=== PATIENT | female | born 1935 | race Caucasian/White ===

== ENCOUNTER 2018-09-21 23:31 | Observation (INO) ==
[2018-09-22 00:07] LABS: Basophils # (auto) 0.04 K/uL (0-0.2); Basophils % (auto) 0.6 %; Eosinophils # (auto) 0.26 K/uL (0-0.5); Eosinophils % (auto) 3.7 %; Hematocrit (blood only) 38.7 % (37-47); Hemoglobin 12.4 g/dL (12.0-16.0); Immature Granulocytes # (auto) 0.01 K/uL (0.00-0.02); Immature Granulocytes % (auto) 0.1 %; Lymphocytes # (auto) 2.43 K/uL (1.2-3.4); Lymphocytes % (auto) 34.2 %; Mean Corpuscular Volume 83.9 fL (80-100); Mean Platelet Volume 9.4 fL (7.4-10.4); Monocytes # (auto) 0.53 K/uL (0.11-0.59); Monocytes % (auto) 7.5 %; Neutrophils # (auto) 3.84 K/uL (1.4-6.5); Neutrophils % (auto) 53.9 %; Platelet Count 299 K/uL (130-400); RDW Coefficient of Variation 15.3 % (11.5-14.5); RDW Standard Deviation 46.6 fL (36.4-46.3); Red Blood Count 4.61 M/uL (4.2-5.4); White Blood Count 7.11 K/uL (4.8-10.8)
[2018-09-22] MEDS ORDERED: ASPIRIN CHEW 324 MG PO STA (00:22)
[2018-09-22 00:24] LABS: Albumin Level 3.6 gm/dl (3.4-5.0); Aspartate Aminotransferase 22 U/L (15-37); BUN Creatinine Ratio 40.8 (10-20); Blood Urea Nitrogen 24 mg/dl (7-18); Calcium 10.2 mg/dl (8.5-10.1); Carbon Dioxide 31 mmol/L (21-32); Chloride 101 mmol/L (98-107); Creatinine Clr Calc Pharmacy 68.8 ml/min; Est GFR (African American) 98.8; Est GFR (Non-African American) 85.2; Glucose 111 mg/dl (70-99); Potassium 4.1 mmol/L (3.5-5.1); Sodium 137 mmol/L (136-145)
[2018-09-22 00:25] LABS: Partial Thromboplastin Ratio 0.9; Partial Thromboplastin Time 25.3 Seconds (21.0-31.0); Prothrombin Time 10.5 Seconds (9.0-12.0)
[2018-09-22 00:29] LABS: Alanine Aminotransferase 15 U/L (12-78); Albumin Globulin Ratio 0.9 (0.9-2); Alkaline Phosphatase 132 U/L (45-117); Bilirubin,Total 0.6 mg/dl (0.2-1); Creatine Kinase 104 U/L (26-192); Creatine Kinase MB 7.1 ng/ml (0.5-3.6); Globulin 3.8 gm/dl (2.5-4.0); Total Protein 7.4 gm/dl (6.4-8.2); Troponin I < 0.015 ng/ml (0-0.045)
[2018-09-22] MEDS ORDERED: OPTIRAY 320 125ml IV PRN (00:57)
[2018-09-22] MEDS ORDERED: Heparin IV Low Dose *NO* Bolus ONE (04:42)
[2018-09-22] MEDS ORDERED: ACETAMINOPHEN 325 MG TAB PO PRN (04:42)
[2018-09-22] MEDS ORDERED: NITROGLYCERIN SL 0.4 MG/TAB TAB SL PRN (04:42)
[2018-09-22] MEDS ORDERED: MAGNESIUM HYDROXIDE SUSP 30 ML UDC PO PRN (04:42)
[2018-09-22] MEDS ORDERED: ONDANSETRON INJ 2 MG/ML 2 ML VIAL IV PRN (04:42)
--- NOTE | 2018-09-22 04:47 | History and Physical Report ---
DATE OF ADMISSION: 09/22/2018 CHIEF COMPLAINT: Chest pain. HISTORY OF PRESENT ILLNESS: This is an 83-year-old female with past medical history significant for hyperlipidemia; mild COPD; bronchiectasis without complication; GERD; Johnson's esophagitis; history of spinal cord ependymoma, status post surgery and radiation; neurogenic bladder, straight caths daily; osteoporosis, presents with chest pain. The patient actually yesterday night around 11:00pm, she had chest pain in the retrosternal region. This is a constant steady pain, 8/10 in severity, then she started to feel cold and she put a heating pad and she felt better .It was going to her back but she also has back problems from her surgeries. It lasted until 2am. She also has history of Johnson's esophagus so she was not sure whether this is coming from the heart or from the esophagus and she went to sleep. In the morning, she went to see her family doctor and in the PCP's office EKG was okay, but cardiac enzymes were checked and troponin T high sensitivity and CK-MB, both of them came back high and she was called in around 11:00pm in the night to come to the ER. Currently, the patient since the morning is chest pain free, hemodynamically stable. Denies any headache, no blurred vision. She is always dizzy and has ambulatory dysfunction and uses walker because of her back surgeries Lives with her . Daughter helps her. Denies any fever, chills. Yesterday, when she had chest pain, she had some cough and had some whitish phlegm, but this is improved now. Denies any nausea, no vomiting, no abdominal discomfort. She straight caths daily 4-5 times, no hematuria. She is constipated, but no black stools. Currently, resting comfortable and hemodynamically stable. Troponin T in the outpatient labs was 33 and CK-MB was 9.5. Here in the ER, troponin I is negative, less than 0.015 with CK-MB was high at 7.1. CTA of the chest also was done in the ER and it was unremarkable. We do not have official report yet. EKG is unremarkable. ALLERGIES: ADHESIVE TAPE DRESSING, GABAPENTIN, ASPIRIN, PENICILLINS. PAST MEDICAL HISTORY: As mentioned above. PAST SURGICAL HISTORY: Laminectomy, colonoscopy, EGDs, wedge resection of the lung done in 1990, tonsillectomy, adenoidectomy, spine surgeries in 2001 and 2008. MEDICATIONS: The patient currently on Vitamin D once a week, Benadryl 25 mg p.o. at bedtime p.r.n., naproxen 220 mg t.i.d. p.r.n., omeprazole 20 mg p.o. b.i.d.,hydroxyzine 25 mg p.o. at bedtime p.r.n.Imodium 2 mg p.o. b.i.d. p.r.n., Tylenol 500 mg p.o. daily p.r.n., Lysine 500 mg p.o. daily p.r.n., milk of magnesia as needed; MiraLax 17 g daily p.r.n. FAMILY HISTORY: Significant for mother had stroke, musculoskeletal disorder, mental disorder, heart disorder, cancer, and arthritis. SOCIAL HISTORY: , lives with . Former smoker, quit in 1964, smoked half a pack a day for 10 years. Alcohol 5-6 oz alcohol per week. No drug use. REVIEW OF SYMPTOMS: As per HPI. Rest of review of symptoms negative. PHYSICAL EXAMINATION: GENERAL: The patient is old and frail, not in acute distress. VITAL SIGNS: Temperature 36.5, pulse 70, respiratory rate 18, blood pressure 146/80, oxygen 97% room air. HEENT: No pallor, no icterus. Pupils equal, round, and react to light. NECK: No JVD, no neck masses, no carotid bruits. CARDIOVASCULAR: S1, S2 heard, regular rate and rhythm, no murmur, no gallop. RESPIRATORY SYSTEM: Normal AP diameter. No accessory muscle use. No wheezing, no crackles. ABDOMEN: Soft, bowel sounds present. Nontender. No distention. CENTRAL NERVOUS SYSTEM: Cranial nerves II-XII grossly intact. Nonfocal. EXTREMITIES: No edema, no erythema. LABS: WBC 7.1, hemoglobin 12.4, hematocrit 38.7, platelets 299. PT 10.5, INR 1, APTT 25.3. Sodium 137, potassium 4.1, chloride 101, bicarbonate 31, BUN 34, creatinine 0.5, serum glucose 111, calcium 10.2, total bilirubin 0.6, AST 22, ALT , alkaline phosphatase 132, total creatinine kinase 104, CK-MB 7.1, troponin I less than 0.015. Lipase 193. CT of the chest initially was unremarkable. EKG: Normal sinus rhythm, at rate of 75. No acute ST changes seen. ASSESSMENT AND PLAN: This is an 83-year-old female who presents with chest pain. 1. Chest pain, possible non-ST elevated myocardial infarction. Had chest pain yesterday night, lasted for probably 3hrs also had chest pain Tuesday, but not as severe as yesterday. Steady pain, 8/10 in severity, went to primary care physician. EKG was okay but troponin T was 33 and, CK-MB was 9.3 and advised to come to the Emergency Room. Here troponin I is negative but CK-MB is 7.1. The patient is currently asymptomatic and hemodynamically stable. We will observe in tele floor. Serial cardiac enzymes, echocardiogram. We will empirically start on low dose IV heparin and follow echocardiogram and await cardiac input. Closely monitor in the tele floor. 2. History of hyperlipidemia. Used to be on statin before but no longer. We will follow the fasting lipid profile and probably we will be starting statin. 3. History of Johnson's esophagus with dysplasia on omeprazole 20mg b.i.d. which will be continued. 4. History of spinal cord, ependymoma, first time in 2001, status post surgery and radiation, in 2008 again had surgery and radiation, but there was a small residual tumor from 2001 which is started o regrow. Now, she is following with [facility] and there is no plan for radiation or surgery .Plan to closely monitor with repeat MRI's Has back pain. Uses nsaids and tylenol prn. Will nsaid for now. 5. Deep vein thrombosis prophylaxis, sequential compression devices for now. DISPOSITION: Close monitor in tele floor. PT and OT prior to discharge. Social service to help with discharge planning. Level I full code. MTDD
[2018-09-22] MEDS ORDERED: HEPARIN LOW DOSE DEXTROSE 25,000 UNITS/500 ML IV SCH (04:48)
[2018-09-22 05:56] LABS: Basophils # (auto) 0.05 K/uL (0-0.2); Basophils % (auto) 0.9 %; Eosinophils # (auto) 0.24 K/uL (0-0.5); Eosinophils % (auto) 4.4 %; Hematocrit (blood only) 36.3 % (37-47); Hemoglobin 11.7 g/dL (12.0-16.0); Immature Granulocytes # (auto) 0.01 K/uL (0.00-0.02); Immature Granulocytes % (auto) 0.2 %; Lymphocytes # (auto) 2.04 K/uL (1.2-3.4); Lymphocytes % (auto) 37.5 %; Mean Corpuscular Hgb Conc 32.2 g/dL (32-36); Mean Corpuscular Volume 84.2 fL (80-100); Mean Platelet Volume 8.9 fL (7.4-10.4); Monocytes # (auto) 0.52 K/uL (0.11-0.59); Monocytes % (auto) 9.6 %; Neutrophils # (auto) 2.58 K/uL (1.4-6.5); Neutrophils % (auto) 47.4 %; Platelet Count 245 K/uL (130-400); RDW Standard Deviation 46.6 fL (36.4-46.3); Red Blood Count 4.31 M/uL (4.2-5.4); White Blood Count 5.44 K/uL (4.8-10.8)
[2018-09-22 06:13] LABS: BUN Creatinine Ratio 39.2 (10-20); Blood Urea Nitrogen 19 mg/dl (7-18); Calcium 9.4 mg/dl (8.5-10.1); Carbon Dioxide 29 mmol/L (21-32); Chloride 105 mmol/L (98-107); Creatinine Clr Calc Pharmacy 81.4 ml/min; Est GFR (African American) 104.4; Est GFR (Non-African American) 90.1; Glucose 92 mg/dl (70-99); Magnesium 2.4 mg/dl (1.8-2.4); Potassium 3.9 mmol/L (3.5-5.1); Sodium 140 mmol/L (136-145)
[2018-09-22 06:18] LABS: Chol HDL Ratio 3; Cholesterol 154 mg/dl (0-200); Creatine Kinase MB 4.4 ng/ml (0.5-3.6); HDL Cholesterol 46 mg/dl; LDL Cholesterol Calculated 88 mg/dl; Triglycerides 98 mg/dl (0-150); Troponin I < 0.015 ng/ml (0-0.045); VLDL Cholesterol 20 mg/dl
--- NOTE | 2018-09-22 06:24 | Emergency Department Note ---
Entered by Petr De La Paz acting as a scribe for History of Present Illness General Chief complaint: Chest Pain Stated complaint: CHEST PAIN Time Seen by Provider: 09/21/18 23:42 Source: patient History of Present Illness Provider complaint: Chest pain Onset (ago): day(s) 1 Location: chest Radiation: back Pain Consistency: + now resolved Current Pain Intensity: 8 Quality: + aching Relieved By: + none Associated symptoms: + cough, + fever/chills (No fever ) and + other (No abdominal pain, ); no nausea/vomiting and no shortness of breath The patient is an 83 year old female who presents to the Emergency Room after being told by her [facility] doctor, who she saw this morning, to come to the ED for elevated lab numbers including an elevated troponin. She originally went to [facility] for chest pain that started yesterday around 2300, but it has since resolved. She states when the pain was present, she rated it as an 8/10 and it was constant. She also had upper back pain, which is unusual for her because her lower back is usually what aches. The patient has also had a productive cough with white mucus and some chills that caused her to use a heating pad. She states she has had a dry cough for some time but no other illnesses and she also denies any shortness of breath, diaphoresis, or nausea. She also has not had any abdominal pain but did notice her left ankle has been slightly swollen. While at [facility] this morning she also had a chest xray done. She has no cardiac history besides being told twice in the past that she had an irregular heartbeat. The patient just recently stopped taking daily low dose Aspirin in August 2018. She also noted she has an endoscopy scheduled for October. Home Medications Home Medications Medication Instructions Recorded Confirmed Type acetaminophen [Tylenol] 650 mg PO DIRECTED PRN 09/22/18 09/22/18 History aspirin [Aspir-81] 81 mg PO Q OTHER DAY 09/22/18 09/22/18 History diphenhydramine HCl [Benadryl] 25 mg PO HS PRN 09/22/18 09/22/18 History hydroxyzine HCl 25 mg PO HS PRN 09/22/18 09/22/18 History ibuprofen 200 - 400 mg PO DIRECTED PRN 09/22/18 09/22/18 History lysine 500 mg PO DAILY 09/22/18 09/22/18 History magnesium hydroxide [Milk of 30 ml PO DAILY PRN 09/22/18 09/22/18 History Magnesia] omeprazole 20 mg PO BID 09/22/18 09/22/18 History psyllium husk [Metamucil] 1 tbsp PO DAILY 09/22/18 09/22/18 History Allergies Allergy/AdvReac Type Severity Reaction Status Date / Time adhesive Allergy Mild RASH, Verified 09/22/18 00:22 REDDENED AREAS WHERE APPLIED bacitracin Allergy Mild RASH Verified 09/22/18 00:22 neomycin Allergy Mild RASH Verified 09/22/18 00:22 Penicillins Allergy Mild RASH YEARS Verified 09/22/18 00:22 AGO polymyxin B Allergy Mild RASH Verified 09/22/18 00:22 Past Med/Surg History Medical History Irregular heart beat Family History Other Family history non-contributory Social History Current Living Situation: Spouse Other Information That Helps Us Care for You: No Feels Safe at Home: Yes Safety Concerns: Feels Safe At This Time Smoking Status: Former smoker Hx Alcohol Use: No Hx Substance Use: No Beliefs That Will Affect Care: None Review of Systems See HPI for pertinent positives & negatives. and A total of 10 systems reviewed and were otherwise negative Physical Exam Vital Signs Vital Signs - 24 hr 09/21/18 23:40 09/21/18 23:51 09/22/18 00:01 Temperature 36.5 C Temperature Source Oral Sepsis Recent Fever Within 48 Hours No Sepsis New/Unexplained Change in Mental Status No Sepsis Action Taken by Nursing No Action Required Pulse Rate 76 68 Pulse Rate [Apical] Pulse Rate from SpO2 Sensor 70 Respiratory Rate 19 15 Blood Pressure 160/88 H 134/75 Blood Pressure [Left Arm] Blood Pressure Mean 112 94 Blood Pressure Mean [Left Arm] Pulse Oximetry 96 98 95 Oxygen Delivery Method Room Air 09/22/18 00:30 09/22/18 01:00 09/22/18 01:30 Temperature Temperature Source Sepsis Recent Fever Within 48 Hours Sepsis New/Unexplained Change in Mental Status Sepsis Action Taken by Nursing Pulse Rate 70 73 70 Pulse Rate [Apical] Pulse Rate from SpO2 Sensor 70 73 70 Respiratory Rate 17 15 19 Blood Pressure 121/76 147/78 H 137/80 Blood Pressure [Left Arm] Blood Pressure Mean 91 101 99 Blood Pressure Mean [Left Arm] Pulse Oximetry 95 96 95 Oxygen Delivery Method 09/22/18 02:00 09/22/18 02:19 09/22/18 02:30 Temperature Temperature Source Sepsis Recent Fever Within 48 Hours Sepsis New/Unexplained Change in Mental Status Sepsis Action Taken by Nursing Pulse Rate 72 71 70 Pulse Rate [Apical] Pulse Rate from SpO2 Sensor 72 72 70 Respiratory Rate 21 16 18 Blood Pressure 148/84 H 141/88 H 146/88 H Blood Pressure [Left Arm] Blood Pressure Mean 105 105 107 Blood Pressure Mean [Left Arm] Pulse Oximetry 96 98 97 Oxygen Delivery Method 09/22/18 03:00 09/22/18 03:30 09/22/18 03:31 Temperature Temperature Source Sepsis Recent Fever Within 48 Hours Sepsis New/Unexplained Change in Mental Status Sepsis Action Taken by Nursing Pulse Rate 76 72 74 Pulse Rate [Apical] Pulse Rate from SpO2 Sensor Respiratory Rate 19 20 18 Blood Pressure 172/93 H 137/82 Blood Pressure [Left Arm] Blood Pressure Mean 119 100 Blood Pressure Mean [Left Arm] Pulse Oximetry Oxygen Delivery Method 09/22/18 03:50 Temperature 36.4 C L Temperature Source Oral Sepsis Recent Fever Within 48 Hours Sepsis New/Unexplained Change in Mental Status Sepsis Action Taken by Nursing Pulse Rate Pulse Rate [Apical] 101 H Pulse Rate from SpO2 Sensor Respiratory Rate 18 Blood Pressure Blood Pressure [Left Arm] 157/89 H Blood Pressure Mean Blood Pressure Mean [Left Arm] 111 Pulse Oximetry 97 Oxygen Delivery Method Room Air HEENT: Head - normocephalic and atraumatic Pupils are equal, round, and reactive to light. Extraocular eye muscles are intact, and sclera are anicteric. Nose - moist nasal mucosa without discharge. Mouth - moist buccal mucosa. Oropharynx is nonerythematous and there is no tonsillar exudate or edema noted. Neck: Supple; no JVD, nuchal rigidity, cervical lymphadenopathy. Heart: Regular rate and rhythm. There is a normal S1 and S2 with no murmurs, clicks, or gallops appreciated. Lungs: Clear to auscultation bilaterally with no wheezes, rales, or rhonchi. Abdomen: Soft, completely nontender, nondistended, with good bowel sounds. There are no palpable pulsatile masses or hepatosplenomegaly. There is no guarding, rigidity, or rebound noted. Extremities: No evidence of cyanosis, clubbing, or edema. There are easily palpable peripheral pulses. Skin: warm and dry with good turgor and no rashes. Course 0010: Past medical records reviewed. The patient was evaluated in room C04, and a complete history and physical examination were performed. 0016: I reviewed the labs from the patient's trip to [facility] this morning. Her high sensitivity Troponin T was 33, and it normally should range from 0-14. Her MB fraction was 9.5. Her ionized calcium was 1.45. I also reviewed her chest xray image through [facility] which showed she has a significantly widened mediastinum and a tortuous aorta. We have no previous chest Xrays here for comparison so she will be getting a CT scan of the chest. 0022: I ordered Aspirin 324mg PO 0035: I spoke to the patient about her chest xray that she had done today and the plan of treatment. She will go for CT scan of the chest 0205: I discussed the results of the imaging and labs with the patient. 0215: I spoke to Dr. Jerzy Nick about the patient's case and he is accepting her for further evaluation. Consultations Consultation #1: I spoke to Dr. Jerzy Nick about the patient 's case and he is accepting her for further evaluation. Time: 02:15 Administered Medications Heparin Sodium/Dextrose (Heparin Sodium/Dextrose) 25,000 units in 500 mls @ 14 mls/hr IV .Q24H [facility]; Protocol Stop: 10/22/18 04:47 Last Admin: 09/22/18 04:52 Dose: 700 units/hr, 14 mls/hr Discontinued Medications Aspirin (Aspirin) 324 mg PO NOW STA Stop: 09/22/18 00:23 Last Admin: 09/22/18 01:01 Dose: 324 mg Ioversol (Optiray 320 125ml) 119 ml IV ONCE PRN PRN Reason: Interaction Checking Stop: 09/26/18 00:56 Last Admin: 09/22/18 00:57 Dose: 119 ml Medical Decision Making Differential Diagnosis The patient is an 83 year old female who presents to the Emergency Room after being told by her [facility] doctor, who she saw this morning, to come to the ED for elevated lab numbers including an elevated troponin. Differential diagnosis includes N-STEMI, unstable angina, and GERD, amongst others. Medical Records Attestation: I reviewed the patient's medical records. Home Medications Current Medication List: was personally reviewed by me Laboratory Data Attestation: I reviewed the patient's lab results. Result diagrams: 09/22/18 05:43 09/22/18 05:43 Lab Results 09/21/18 09/21/18 09/21/18 Range/Units 23:45 23:45 23:45 WBC 7.11 (4.8-10.8) K/uL RBC 4.61 (4.2-5.4) M/uL Hgb 12.4 (12.0-16.0) g/dL Hct 38.7 (37-47) % MCV 83.9 (80-100) fL MCH 26.9 (25-34) pg MCHC 32.0 (32-36) g/dL RDW Std Deviation 46.6 H (36.4-46.3) fL RDW Coeff of Anastasia 15.3 H (11.5-14.5) % Plt Count 299 (130-400) K/uL MPV 9.4 (7.4-10.4) fL Immature Gran % (Auto) 0.1 % Neut % (Auto) 53.9 % Lymph % (Auto) 34.2 % [place] % (Auto) 7.5 % Eos % (Auto) 3.7 % Baso % (Auto) 0.6 % Immature Gran # (Auto) 0.01 (0.00-0.02) K/uL Neut # (Auto) 3.84 (1.4-6.5) K/uL Lymph # (Auto) 2.43 (1.2-3.4) K/uL [place] # (Auto) 0.53 (0.11-0.59) K/uL Eos # (Auto) 0.26 (0-0.5) K/uL Baso # (Auto) 0.04 (0-0.2) K/uL PT 10.5 (9.0-12.0) Seconds INR 1.0 (0.9-1.1) APTT 25.3 (21.0-31.0) Seconds PTT Ratio 0.9 Sodium 137 (136-145) mmol/L Potassium 4.1 (3.5-5.1) mmol/L Chloride 101 (98-107) mmol/L Carbon Dioxide 31 (21-32) mmol/L Anion Gap 5.0 (3-11) BUN 24 H (7-18) mg/dl Creatinine 0.58 L (0.6-1.2) mg/dl Est Cr Clr Drug Dosing 68.8 ml/min Est GFR ( Amer) 98.8 Est GFR (Non-Af Amer) 85.2 BUN/Creatinine Ratio 40.8 H (10-20) Glucose 111 H (70-99) mg/dl Calcium 10.2 H (8.5-10.1) mg/dl Magnesium (1.8-2.4) mg/dl Total Bilirubin 0.6 (0.2-1) mg/dl AST 22 (15-37) U/L ALT 15 (12-78) U/L Alkaline Phosphatase 132 H (45-117) U/L Total Creatine Kinase 104 (26-192) U/L CK-MB (CK-2) 7.1 H (0.5-3.6) ng/ml CK/CKMB % Calc 6.8 H (0-3.0) Troponin I < 0.015 (0-0.045) ng/ml Total Protein 7.4 (6.4-8.2) gm/dl Albumin 3.6 (3.4-5.0) gm/dl Globulin 3.8 (2.5-4.0) gm/dl Albumin/Globulin Ratio 0.9 (0.9-2) Triglycerides (0-150) mg/dl Cholesterol (0-200) mg/dl LDL Cholesterol, Calc mg/dl VLDL Cholesterol, Calc mg/dl HDL Cholesterol mg/dl Cholesterol/HDL Ratio Lipase 193 (73-393) U/L 09/22/18 09/22/18 Range/Units 05:43 05:43 WBC 5.44 (4.8-10.8) K/uL RBC 4.31 (4.2-5.4) M/uL Hgb 11.7 L (12.0-16.0) g/dL Hct 36.3 L (37-47) % MCV 84.2 (80-100) fL MCH 27.1 (25-34) pg MCHC 32.2 (32-36) g/dL RDW Std Deviation 46.6 H (36.4-46.3) fL RDW Coeff of Anastasia 15.0 H (11.5-14.5) % Plt Count 245 (130-400) K/uL MPV 8.9 (7.4-10.4) fL Immature Gran % (Auto) 0.2 % Neut % (Auto) 47.4 % Lymph % (Auto) 37.5 % [place] % (Auto) 9.6 % Eos % (Auto) 4.4 % Baso % (Auto) 0.9 % Immature Gran # (Auto) 0.01 (0.00-0.02) K/uL Neut # (Auto) 2.58 (1.4-6.5) K/uL Lymph # (Auto) 2.04 (1.2-3.4) K/uL [place] # (Auto) 0.52 (0.11-0.59) K/uL Eos # (Auto) 0.24 (0-0.5) K/uL Baso # (Auto) 0.05 (0-0.2) K/uL PT (9.0-12.0) Seconds INR (0.9-1.1) APTT (21.0-31.0) Seconds PTT Ratio Sodium 140 (136-145) mmol/L Potassium 3.9 (3.5-5.1) mmol/L Chloride 105 (98-107) mmol/L Carbon Dioxide 29 (21-32) mmol/L Anion Gap 5.0 (3-11) BUN 19 H (7-18) mg/dl Creatinine 0.49 L (0.6-1.2) mg/dl Est Cr Clr Drug Dosing 81.4 ml/min Est GFR ( Amer) 104.4 Est GFR (Non-Af Amer) 90.1 BUN/Creatinine Ratio 39.2 H (10-20) Glucose 92 (70-99) mg/dl Calcium 9.4 (8.5-10.1) mg/dl Magnesium 2.4 (1.8-2.4) mg/dl Total Bilirubin (0.2-1) mg/dl AST (15-37) U/L ALT (12-78) U/L Alkaline Phosphatase (45-117) U/L Total Creatine Kinase (26-192) U/L CK-MB (CK-2) 4.4 H (0.5-3.6) ng/ml CK/CKMB % Calc (0-3.0) Troponin I < 0.015 (0-0.045) ng/ml Total Protein (6.4-8.2) gm/dl Albumin (3.4-5.0) gm/dl Globulin (2.5-4.0) gm/dl Albumin/Globulin Ratio (0.9-2) Triglycerides 98 (0-150) mg/dl Cholesterol 154 (0-200) mg/dl LDL Cholesterol, Calc 88 mg/dl VLDL Cholesterol, Calc 20 mg/dl HDL Cholesterol 46 mg/dl Cholesterol/HDL Ratio 3 Lipase (73-393) U/L Imaging Data Radiologist's Impression: Radiology results as stated below per my review and the radiologist's interpretation: CTA CHEST Without and with contrast Prior from 07/12/16 No PE Mildly aneurysmal ascending aorta 4cm. Stable. No evidence of leak. Stable postop changes right partial lung resection. Mild atelectasis or scarring bilaterally. Stable right apical paravertebral density. Moderate hiatal hernia. Radiologist: Abraham Dejesus MD Study ready at 01:04 and initial results transmitted at 01:41. ECG Data Attestation: I personally reviewed and interpreted this ECG as follows: Indication: chest pain Rate (beats per minute): 75 Rhythm: normal sinus Findings: no PAC, no PVC and no acute ischemic change Blood Pressure Blood Pressure Findings: Elevated blood pressure Blood Pressure Disposition: further management by hospitalist BRITNI Narrative The patient is an 83 year old female who presents to the Emergency Room after being told by her [facility] doctor, who she saw this morning, to come to the ED for elevated lab numbers including an elevated troponin. The patient's chest discomfort began at 11 PM last evening and resolved at 2 AM. She had an elevated troponin from this morning as well as an elevated CK- MB. She was notified this evening to come to the emergency department. She had no recurrence of her chest discomfort. Chest x-ray done this morning was reviewed and revealed a widened mediastinum and a tortuous aorta. CT scan of the chest was performed here which showed a 4 cm aortic aneurysm in the ascending aorta. However, the patient's troponin was negative but CK-MB remained elevated at 7.7. I discussed the case with the [facility] Hospitalist and they will evaluate the patient for further management. I discussed anticoagulation with the hospitalist and we decided to hold off at this time other than the aspirin that was already given. Impression & Plan Substernal chest pain, Aortic aneurysm Discharge Plan Visit Data *Final* Discharge Date/Time: 09/22/18 03:31 Chief Complaint: Chest Pain Stated Complaint: CHEST PAIN ED Provider: Soraya Humphrey Discharge Problem: Substernal chest pain, Aortic aneurysm Patient Disposition: Admitted As Inpatient The scribe's documentation has been prepared under my direction and personally reviewed by me in its entirety. I confirm that the note above accurately reflects all work, treatment, procedures, and medical decision making performed by me.
--- NOTE | 2018-09-22 07:11 | CT Scan Report ---
CHEST CTA for AORTIC DISSECTION CT DOSE: 369.22 mGy.cm HISTORY: Atypical chest pain. eval for aortic dissection TECHNIQUE: Multiaxial CT images of the chest were performed both before and after the intravenous adm inistration of contrast to evaluate the aorta. Maximal intensity projection images were also obtained . A dose lowering technique was utilized adhering to the principles of ALARA. COMPARISON STUDY: Chest CT 07/12/2016. FINDINGS: No evidence for an aortic dissection. Tortuous descending thoracic aorta is again noted. Th e ascending thoracic aorta is mildly dilated measuring up to 4 cm in diameter. This remains unchanged . The central pulmonary arteries are patent. The heart is normal in size. Small hiatus hernia. No med iastinal or hilar lymphadenopathy. No pleural or pericardial effusions. Mildly dilated and gas-filled esophagus. The visualized liver and spleen are unremarkable. Postoperative changes within the right ribs consistent with a prior thoracotomy. No pneumothorax. Prior right middle lobectomy. This account s for the mild right mediastinal shift. Mild emphysema. Stable partially calcified nodular density wi thin the lingula. Stable to very density within the left lower lobe on image 214. Small patchy scarli ke density within the left lower lobe medially is also unchanged. Stable focal scarlike density withi n the right lung apex. Additional stable linear densities within the right upper to midlung zone cons istent with postoperative change and scarring. Given the long-term stability of all these findings th vinay are considered to be benign. No new focal lung consolidations to suggest pneumonia. No evidence f or pulmonary edema. IMPRESSION: 1. No evidence for an aortic dissection. 2. Stable mild aneurysmal dilatation of the ascending thoracic aorta measuring up to 4 cm in diameter . 3. Additional postoperative and chronic changes as described above. No new focal lung consolidations. Electronically signed by: Erickson Isabel M.D. 09/22/2018 7:10 AM
[2018-09-22] MEDS ORDERED: PANTOprazole 40 MG TAB PO SCH (09:00)
[2018-09-22] MEDS ORDERED: ASPIRIN 81 MG ECTAB PO SCH (09:00)
[2018-09-22] MEDS ORDERED: ATORVASTATIN 40 MG TAB PO SCH (09:00)
--- NOTE | 2018-09-22 09:49 | Cardiology Consultation ---
Date of Consultation September 22, 2018 Assessment & Plan (1) Substernal chest pain: Patient has negative cardiac markers after admission and a normal EKG. High-sensitivity troponins can be very sensitive and less nonspecific. That is why we follow them up with the regular troponins. Her echocardiogram shows no wall motion abnormalities that would suggest ischemic heart disease. I would recommend that we do a screening dobutamine stress echocardiogram prior to discharge. (2) Aortic aneurysm: The top normal measurement for the ascending aorta is 4 cm in diameter. The CT done through the emergency department provides a measurement of the ascending aorta of 4.0 cm. We will certainly keep an eye on this and she can have a follow-up study in the future, but at this point I do not believe we can call this an aortic aneurysm. (3) Johnson esophagus: She has an EGD scheduled for the next several weeks to have follow-up for her Johnson's esophagus. This is a secondary reason to screen her for coronary artery disease with a dobutamine stress echocardiogram. History of Present Illness Attending Physician: Anahi Garg DO History of Present Illness This is a 83-year-old female with no prior history of heart disease. 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 Last evening she was awoken from sleep with a dull ache in her chest. She thought this was due to her esophagitis, put a warm heating pad on her chest which improved her pain and went back to sleep. In the morning she did not have any chest pain. She did follow-up with her primary care physician who obtained a [id number] rapid high-sensitivity troponin which came back positive. She was referred to the emergency department. After admission she has had no additional chest pain. Laboratory analyzed troponin have been negative. Her EKG is completely within normal limits. She denies shortness of breath. She has had no activity related chest pain recently. CT of the chest shows mild dilatation of the ascending aorta and is otherwise unremarkable. She has no history of cigarette smoking or diabetes. Allergies Allergy/AdvReac Type Severity Reaction Status Date / Time adhesive Allergy Mild RASH, Verified 09/22/18 00:22 REDDENED AREAS WHERE APPLIED bacitracin Allergy Mild RASH Verified 09/22/18 00:22 neomycin Allergy Mild RASH Verified 09/22/18 00:22 Penicillins Allergy Mild RASH YEARS Verified 09/22/18 00:22 AGO polymyxin B Allergy Mild RASH Verified 09/22/18 00:22 Home Medications Home Medications Medication Instructions Recorded Confirmed Type acetaminophen [Tylenol] 650 mg PO DIRECTED PRN 09/22/18 09/22/18 History aspirin [Aspir-81] 81 mg PO Q OTHER DAY 09/22/18 09/22/18 History diphenhydramine HCl [Benadryl] 25 mg PO HS PRN 09/22/18 09/22/18 History hydroxyzine HCl 25 mg PO HS PRN 09/22/18 09/22/18 History ibuprofen 200 - 400 mg PO DIRECTED PRN 09/22/18 09/22/18 History lysine 500 mg PO DAILY 09/22/18 09/22/18 History magnesium hydroxide [Milk of 30 ml PO DAILY PRN 09/22/18 09/22/18 History Magnesia] omeprazole 20 mg PO BID 09/22/18 09/22/18 History psyllium husk [Metamucil] 1 tbsp PO DAILY 09/22/18 09/22/18 History Patient History Medical History Irregular heart beat Family History Other Family history non-contributory Social History Current Living Situation: Spouse Other Information That Helps Us Care for You: No Feels Safe at Home: Yes Safety Concerns: Feels Safe At This Time Smoking Status: Former smoker Hx Alcohol Use: No Hx Substance Use: No Beliefs That Will Affect Care: None Review of Systems Review of Systems: See HPI for pertinent positives. All other 10 point review of systems are negative. Physical Exam 2 Vital Signs (Past 24 Hours): Last Vital Signs Temp 36.4 C L 09/22/18 07:19 Pulse 72 09/22/18 07:19 Resp 18 09/22/18 07:19 BP 138/72 09/22/18 07:19 Pulse Ox 96 09/22/18 07:19 Physical Exam: General: no acute distress and stated age Head: normocephalic, no masses, lesions, tenderness or abnormalities Eyes: conjunctiva are pink and non-injected, sclera clear Neck: supple, no adenopathy, no bruits, normal jugular venous pulse, no hepatojugular reflux Chest: normal shape and normal respiratory effort Lungs: clear to auscultation and percussion Cardiac Exam: - regular rate & rhythm, no murmurs gallops or rubs - normal S1, normal S2 Pulses: 2(+) throughout Abdomen: abdomen soft, non-tender, no abnormal masses and no hepatosplenomegaly Musculoskeletal: no gait disturbance, no joint inflammation, no deforming arthritis Extremities: no edema and no cyanosis Neuro: grossly normal exam Results & Data Laboratory Results Laboratory Results - last 24 hr 09/21/18 09/21/18 09/21/18 23:45 23:45 23:45 WBC 7.11 RBC 4.61 Hgb 12.4 Hct 38.7 MCV 83.9 MCH 26.9 MCHC 32.0 RDW Std Deviation 46.6 H RDW Coeff of Anastasia 15.3 H Plt Count 299 MPV 9.4 Immature Gran % (Auto) 0.1 Neut % (Auto) 53.9 Lymph % (Auto) 34.2 Avery % (Auto) 7.5 Eos % (Auto) 3.7 Baso % (Auto) 0.6 Immature Gran # (Auto) 0.01 Neut # (Auto) 3.84 Lymph # (Auto) 2.43 Avery # (Auto) 0.53 Eos # (Auto) 0.26 Baso # (Auto) 0.04 PT 10.5 INR 1.0 APTT 25.3 PTT Ratio 0.9 Sodium 137 Potassium 4.1 Chloride 101 Carbon Dioxide 31 Anion Gap 5.0 BUN 24 H Creatinine 0.58 L Est Cr Clr Drug Dosing 68.8 Est GFR ( Amer) 98.8 Est GFR (Non-Af Amer) 85.2 BUN/Creatinine Ratio 40.8 H Glucose 111 H Calcium 10.2 H Magnesium Total Bilirubin 0.6 AST 22 ALT 15 Alkaline Phosphatase 132 H Total Creatine Kinase 104 CK-MB (CK-2) 7.1 H CK/CKMB % Calc 6.8 H Troponin I < 0.015 Total Protein 7.4 Albumin 3.6 Globulin 3.8 Albumin/Globulin Ratio 0.9 Triglycerides Cholesterol LDL Cholesterol, Calc VLDL Cholesterol, Calc HDL Cholesterol Cholesterol/HDL Ratio Lipase 193 09/22/18 09/22/18 05:43 05:43 WBC 5.44 RBC 4.31 Hgb 11.7 L Hct 36.3 L MCV 84.2 MCH 27.1 MCHC 32.2 RDW Std Deviation 46.6 H RDW Coeff of Anastasia 15.0 H Plt Count 245 MPV 8.9 Immature Gran % (Auto) 0.2 Neut % (Auto) 47.4 Lymph % (Auto) 37.5 Avery % (Auto) 9.6 Eos % (Auto) 4.4 Baso % (Auto) 0.9 Immature Gran # (Auto) 0.01 Neut # (Auto) 2.58 Lymph # (Auto) 2.04 Avery # (Auto) 0.52 Eos # (Auto) 0.24 Baso # (Auto) 0.05 PT INR APTT PTT Ratio Sodium 140 Potassium 3.9 Chloride 105 Carbon Dioxide 29 Anion Gap 5.0 BUN 19 H Creatinine 0.49 L Est Cr Clr Drug Dosing 81.4 Est GFR ( Amer) 104.4 Est GFR (Non-Af Amer) 90.1 BUN/Creatinine Ratio 39.2 H Glucose 92 Calcium 9.4 Magnesium 2.4 Total Bilirubin AST ALT Alkaline Phosphatase Total Creatine Kinase CK-MB (CK-2) 4.4 H CK/CKMB % Calc Troponin I < 0.015 Total Protein Albumin Globulin Albumin/Globulin Ratio Triglycerides 98 Cholesterol 154 LDL Cholesterol, Calc 88 VLDL Cholesterol, Calc 20 HDL Cholesterol 46 Cholesterol/HDL Ratio 3 Lipase Diagnostic Findings Laboratory Results WBC 5.44 K/uL (4.8-10.8) 09/22/18 05:43 RBC 4.31 M/uL (4.2-5.4) 09/22/18 05:43 Hgb 11.7 g/dL (12.0-16.0) L 09/22/18 05:43 Hct 36.3 % (37-47) L 09/22/18 05:43 MCV 84.2 fL (80-100) 09/22/18 05:43 MCH 27.1 pg (25-34) 09/22/18 05:43 MCHC 32.2 g/dL (32-36) 09/22/18 05:43 RDW Std Deviation 46.6 fL (36.4-46.3) H 09/22/18 05:43 RDW Coeff of Anastasia 15.0 % (11.5-14.5) H 09/22/18 05:43 Plt Count 245 K/uL (130-400) 09/22/18 05:43 MPV 8.9 fL (7.4-10.4) 09/22/18 05:43 Immature Gran % (Auto) 0.2 % 09/22/18 05:43 Neut % (Auto) 47.4 % 09/22/18 05:43 Lymph % (Auto) 37.5 % 09/22/18 05:43 Avery % (Auto) 9.6 % 09/22/18 05:43 Eos % (Auto) 4.4 % 09/22/18 05:43 Baso % (Auto) 0.9 % 09/22/18 05:43 Immature Gran # (Auto) 0.01 K/uL (0.00-0.02) 09/22/18 05:43 Neut # (Auto) 2.58 K/uL (1.4-6.5) 09/22/18 05:43 Lymph # (Auto) 2.04 K/uL (1.2-3.4) 09/22/18 05:43 Avery # (Auto) 0.52 K/uL (0.11-0.59) 09/22/18 05:43 Eos # (Auto) 0.24 K/uL (0-0.5) 09/22/18 05:43 Baso # (Auto) 0.05 K/uL (0-0.2) 09/22/18 05:43 PT 10.5 Seconds (9.0-12.0) 09/21/18 23:45 INR 1.0 (0.9-1.1) 09/21/18 23:45 APTT 25.3 Seconds (21.0-31.0) 09/21/18 23:45 PTT Ratio 0.9 09/21/18 23:45 Sodium 140 mmol/L (136-145) 09/22/18 05:43 Potassium 3.9 mmol/L (3.5-5.1) 09/22/18 05:43 Chloride 105 mmol/L (98-107) 09/22/18 05:43 Carbon Dioxide 29 mmol/L (21-32) 09/22/18 05:43 Anion Gap 5.0 (3-11) 09/22/18 05:43 BUN 19 mg/dl (7-18) H 09/22/18 05:43 Creatinine 0.49 mg/dl (0.6-1.2) L 09/22/18 05:43 Est Cr Clr Drug Dosing 81.4 ml/min 09/22/18 05:43 Est GFR ( Amer) 104.4 09/22/18 05:43 Est GFR (Non-Af Amer) 90.1 09/22/18 05:43 BUN/Creatinine Ratio 39.2 (10-20) H 09/22/18 05:43 Glucose 92 mg/dl (70-99) 09/22/18 05:43 Calcium 9.4 mg/dl (8.5-10.1) 09/22/18 05:43 Magnesium 2.4 mg/dl (1.8-2.4) 09/22/18 05:43 Total Bilirubin 0.6 mg/dl (0.2-1) 09/21/18 23:45 AST 22 U/L (15-37) 09/21/18 23:45 ALT 15 U/L (12-78) 09/21/18 23:45 Alkaline Phosphatase 132 U/L (45-117) H 09/21/18 23:45 Total Creatine Kinase 104 U/L (26-192) 09/21/18 23:45 CK-MB (CK-2) 4.4 ng/ml (0.5-3.6) H 09/22/18 05:43 CK/CKMB % Calc 6.8 (0-3.0) H 09/21/18 23:45 Troponin I < 0.015 ng/ml (0-0.045) 09/22/18 05:43 Total Protein 7.4 gm/dl (6.4-8.2) 09/21/18 23:45 Albumin 3.6 gm/dl (3.4-5.0) 09/21/18 23:45 Globulin 3.8 gm/dl (2.5-4.0) 09/21/18 23:45 Albumin/Globulin Ratio 0.9 (0.9-2) 09/21/18 23:45 Triglycerides 98 mg/dl (0-150) 09/22/18 05:43 Cholesterol 154 mg/dl (0-200) 09/22/18 05:43 LDL Cholesterol, Calc 88 mg/dl 09/22/18 05:43 VLDL Cholesterol, Calc 20 mg/dl 09/22/18 05:43 HDL Cholesterol 46 mg/dl 09/22/18 05:43 Cholesterol/HDL Ratio 3 09/22/18 05:43 Lipase 193 U/L (73-393) 09/21/18 23:45 CT of the chest indicates mild dilatation of the a sending aorta. Top normal measurement for the ascending aorta is 4.0 cm. Medications Administered Current Inpatient Medications Acetaminophen (Tylenol) 650 mg PO Q4H PRN PRN Reason: Pain or Fever Stop: 10/22/18 04:41 Aspirin (Ecotrin Ectab) 81 mg PO QAM [facility] Stop: 10/22/18 08:59 Last Admin: 09/22/18 09:37 Dose: 81 mg Atorvastatin Calcium (Lipitor) 40 mg PO QAM [facility] Stop: 10/22/18 08:59 Last Admin: 09/22/18 09:37 Dose: 40 mg Diphenhydramine HCl (Benadryl Capsule) 25 mg PO HS PRN PRN Reason: Sleep Stop: 10/22/18 04:41 Hydroxyzine HCl (Vistaril) 25 mg PO HS PRN PRN Reason: Insomnia Stop: 10/22/18 04:57 Magnesium Hydroxide (Milk Of Magnesia) 30 ml PO DAILY PRN PRN Reason: Constipation Stop: 10/22/18 04:41 Nitroglycerin (Nitrostat) 0.4 mg SL UD PRN PRN Reason: Chest Pain Stop: 10/22/18 04:41 Ondansetron HCl (Zofran) 4 mg IV Q6H PRN PRN Reason: Nausea Stop: 10/22/18 04:41 Pantoprazole Sodium (Protonix) 40 mg PO BID [facility] Stop: 10/22/18 08:59 Last Admin: 09/22/18 09:37 Dose: 40 mg _ (1) Aortic aneurysm Aortic location: thoracic aorta Presence of rupture: without rupture Qualified Code(s): I71.2 - Thoracic aortic aneurysm, without rupture
[2018-09-22] MEDS ORDERED: METOPROLOL TARTRATE 1 MG/ML VIAL IV ONE ×2 (11:04→11:05)
[2018-09-22] MEDS ORDERED: DOBUTamine HCL 12.5 MG/ML 20 ML VIAL IV ONE (11:04)
[2018-09-22] MEDS ORDERED: ATROPINE SULFATE 0.1 MG/ML 10ML SYR IV ONE (11:04)
[2018-09-22 12:58] LABS: Creatine Kinase MB 3.7 ng/ml (0.5-3.6); Troponin I < 0.015 ng/ml (0-0.045)
--- NOTE | 2018-09-22 14:58 | Discharge Summary ---
Date of Service September 22, 2018 Admission HPI Per Admitting Provider [facility], [place] History and Physical Report Signed Patient: CADEN JOLLY Date: 09/22/18 MR#: [id number] Phy: Anahi Garg DO Acct ID:[id number] Phy: Richie Mosley MD Date: 1935Fam Phy: Age: 83Location: 2E Sex: F Room/Bed: [facility] cc: Benjamin Bertrand MD~ DICTATED BY: Benjamin Bertrand MD DATE OF ADMISSION: 09/22/2018 CHIEF COMPLAINT: Chest pain. HISTORY OF PRESENT ILLNESS: This is an 83-year-old female with past medical history significant for hyperlipidemia; mild COPD; bronchiectasis without complication; GERD; Johnson's esophagitis; history of spinal cord ependymoma, status post surgery and radiation; neurogenic bladder, straight caths daily; osteoporosis, presents with chest pain. The patient actually yesterday night around 11:00pm, she had chest pain in the retrosternal region. This is a constant steady pain, 8/10 in severity, then she started to feel cold and she put a heating pad and she felt better .It was going to her back but she also has back problems from her surgeries. It lasted until 2am. She also has history of Johnson's esophagus so she was not sure whether this is coming from the heart or from the esophagus and she went to sleep. In the morning, she went to see her family doctor and in the PCP's office EKG was okay, but cardiac enzymes were checked and troponin T high sensitivity and CK-MB, both of them came back high and she was called in around 11:00pm in the night to come to the ER. Currently, the patient since the morning is chest pain free, hemodynamically stable. Denies any headache, no blurred vision. She is always dizzy and has ambulatory dysfunction and uses walker because of her back surgeries Lives with her . Daughter helps her. Denies any fever, chills. Yesterday, when she had chest pain, she had some cough and had some whitish phlegm, but this is improved now. Denies any nausea, no vomiting, no abdominal discomfort. She straight caths daily 4-5 times, no hematuria. She is constipated, but no black stools. Currently, resting comfortable and hemodynamically stable. Troponin T in the outpatient labs was 33 and CK-MB was 9.5. Here in the ER, troponin I is negative, less than 0.015 with CK-MB was high at 7.1. CTA of the chest also was done in the ER and it was unremarkable. We do not have official report yet. EKG is unremarkable. Admission Exam Per Admitting Provider GENERAL: The patient is old and frail, not in acute distress. VITAL SIGNS: Temperature 36.5, pulse 70, respiratory rate 18, blood pressure 146/80, oxygen 97% room air. HEENT: No pallor, no icterus. Pupils equal, round, and react to light. NECK: No JVD, no neck masses, no carotid bruits. CARDIOVASCULAR: S1, S2 heard, regular rate and rhythm, no murmur, no gallop. RESPIRATORY SYSTEM: Normal AP diameter. No accessory muscle use. No wheezing, no crackles. ABDOMEN: Soft, bowel sounds present. Nontender. No distention. CENTRAL NERVOUS SYSTEM: Cranial nerves II-XII grossly intact. Nonfocal. EXTREMITIES: No edema, no erythema. Principal Diagnosis Atypical chest pain Discharge Data Allergies Allergy/AdvReac Type Severity Reaction Status Date / Time adhesive Allergy Mild RASH, Verified 09/22/18 00:22 REDDENED AREAS WHERE APPLIED bacitracin Allergy Mild RASH Verified 09/22/18 00:22 neomycin Allergy Mild RASH Verified 09/22/18 00:22 Penicillins Allergy Mild RASH YEARS Verified 09/22/18 00:22 AGO polymyxin B Allergy Mild RASH Verified 09/22/18 00:22 Consultations 09/22/18 04:42 Consult Case Management - Discharge Planning Routine 09/22/18 08:00 Consult Cardiology Routine Ordered Studies 09/22/18 00:30 CT angio chest dissec wo/w con Urgent Hospital Course (1) Substernal chest pain: (2) Johnson esophagus: (3) Aortic aneurysm: 83-year-old female presented to the ER for evaluation of an elevated troponin T that was drawn in response to chest pain as outpatient. On arrival blood pressure was 160/88, pulse was 76 she was afebrile and oxygenating on room air without issues. Physical exam was unremarkable. She was given full dose aspirin and was placed on a heparin drip. CBC revealed a mild anemia with an H&H of 11.7/36.3. BMP was normal aside from a BUN of 19 and a creatinine of 0.49. Serial troponin I enzymes were trended overnight and were negative. She had no recurrence of her chest discomfort. Chest x-ray revealed a widened mediastinum and a tortuous aorta. CT scan of the chest performed revealed a 4 cm aortic aneurysm in the ascending aorta. CK-MB was elevated at 7.7. She was admitted to the hospital EKG revealed sinus rhythm with a rate of 75 and no evidence of acute ischemic changes. She was admitted to the hospital for observation on telemetry. Review of telemetry revealed no acute events overnight. Cardiology was consulted and recommended a dobutamine stress echocardiogram which was performed the following morning. The patient did not exhibit any symptoms during the drug infusion, she had a normal blood pressure response to exercise, and dobutamine infusion was terminated due to achieving target heart rate. This was a normal pharmacologic stress echocardiogram with no echocardiographic or EKG evidence of myocardial ischemia. She was tolerating p.o., mentating and ambulating at baseline at time of discharge. Physical exam was unremarkable. She was sent home in stable condition with close primary care follow-up. Total Time Total Time Spent Total Time Spent (In Minutes): 60 Total Time Includes: Examination of the Patient, Discharge Planning, Medication Reconciliation and Communication With Other Providers Discharge Plan Discharge Items Patient Disposition: Home - Self-Care Reason For Visit: CHEST PAIN Discharge Diagnosis: Atypical chest pain Condition: Good Discharge Goals: Improve function Activity: Resume your previous activity Non-emergency contact: Primary Care Provider Call non-emergency contact if: you have any medication questions, your symptoms worsen, your pain is not controlled, your pain is worsening, your pain is unusual for you, your pain is concerning for you and you have a fever Follow-up/Referrals: Richie Mosley MD [Primary Care Provider] - Diet: Heart Healthy Addtl Provider Instructions: Please take all medications as instructed on discharge list. It is recommended that you follow-up with your primary care provider within one week. It was a pleasure taking care of you! Please call if you have any questions or problems. You can reach a [facility] hospitalist on duty at [facility] 24 hours a day by calling [phone]. Take care of yourself. Anahi Garg DO [facility] Hospitalist Prescriptions: Continued acetaminophen [Tylenol] 325 mg Tablet 650 mg PO DIRECTED PRN (Reason: Pain) RF: 0 aspirin [Aspir-81] 81 mg Tablet,Delayed Release (Dr/Ec) 81 mg PO Q OTHER DAY RF: 0 magnesium hydroxide [Milk of Magnesia] 400 mg/5 mL Suspension 30 ml PO DAILY PRN (Reason: Constipation) RF: 0 diphenhydramine HCl [Benadryl] 25 mg Capsule 25 mg PO HS PRN (Reason: Sleep) RF: 0 ibuprofen 200 mg Tablet 200 - 400 mg PO DIRECTED PRN (Reason: Pain) RF: 0 omeprazole 20 mg Capsule,Delayed Release(Dr/Ec) 20 mg PO BID RF: 0 lysine 500 mg Tablet 500 mg PO DAILY RF: 0 psyllium husk [Metamucil] 3.4 gram/5.4 gram Powder 1 tbsp PO DAILY RF: 0 hydroxyzine HCl 25 mg tablet 25 mg PO HS PRN (Reason: Insomnia) RF: 0 Stand-Alone Forms: [facility]/Other Patient Handouts: Esophagus Johnson Discharge Orders: Discharge Order (Routine); Ordered 09/22/18 Ordered By: Anahi Garg Admission Data Admit Date/Time: 09/22/18 03:14 Attending Provider: Anahi Garg Admit Provider: Benjamin Bertrand Primary Care Provider: Richie Mosley Other Providers: Frankie Varma ; Mingo Mercer ; Byron Olivarez ; Jeremy Guzman ; Don Loja ; Elier Amato ; Nancy Johnson ; Tata Willson Service: Telemetry Other Interventions: Discharge Summary Assessment (RN) Last Done: 09/22/18 15:18 DC Date/Time DO NOT enter until pt leaves facility: 09/22/18 15:59
== END 2018-09-22 15:59 | disposition home or self-care (01) ==
LOC: ED 23:31 → 2E 23:31